=== PATIENT | female | born 1965 | race Caucasian/White ===

== ENCOUNTER → 2021-04-10 | Outpatient (CLI) | payer OTHER ==
[~2021-04-10] MED LIST: ADDERALL 20 MG20 MG PO; CYCLOBENZAPRINE10 MG PO; LASIX 40 MG TAB40 M1 GT; OXYCONTIN CR 1010 MG PO; POTASSIUM20; TIROSINT100 MCG PO; XANAX XR2 MG PO
== END ==
LOC: M.RAD 17:11
PROVIDERS: ATTEND Internal Medicine
DX: U07.1 COVID-19 (principal); J12.82 Pneumonia due to coronavirus disease 2019; B34.2 Coronavirus infection, unspecified; R05 Cough; R53.1 Weakness